=== PATIENT | female | born 1985 | race Hispanic/Latino ===

== ENCOUNTER 2019-07-04 16:43 | Emergency (ER) | payer SELFPAY ==
--- NOTE | 2019-07-04 17:38 | RAD ---
CHEST ONE VIEW: 07/04/19 INDICATION: Emergency examination, chest pain. COMPARISON: Prior exam dated 10/04/14. FINDINGS: The lungs are clear. The heart size is normal. No pleural effusion, or pneumothorax is evident. No ac becky osseous abnormality is noted. The visualized upper abdomen is unremarkable appearing. IMPRESSION: No acute cardiopulmonary abnormality. POS: [facility]
[2019-07-04 18:16] LABS: #Basophils 0.1 thou/uL (0.0-0.2); #Eosinphils 0.2 thou/uL (0.0-0.7); #Monocytes 0.5 thou/uL (0.11-0.59); %Basophils 1.4 % (0.0-1.0); %Eosinophils 3.4 % (0.0-10.0); %Lymphocytes 29.4 % (21.0-51.0); %Monocytes 7.3 % (0.0-10.0); %Neutrophils 58.5 % (42.0-75.0); Hemoglobin 13.3 g/dL (12.0-16.0); Mean Corpuscular HGB CONC 33.6 g/dL (32.0-36.0); Mean Corpuscular Hemoglobin 31.8 pg (27.0-31.0); Mean Corpuscular Volume 94.7 fL (78.0-98.0); Mean Platelet Volume 8.4 fL (7.4-10.4); Platelet Count 231 thou/uL (130-400); RBC Distribution Width 11.6 % (11.5-14.5); Red Blood Cell (RBC) Count 4.18 mill/uL (4.20-5.40); White Blood Cell (WBC) Count 6.9 thou/uL (4.8-10.8)
[2019-07-04 18:37] LABS: ALT (SGPT) 15 U/L (8-55); AST (SGOT) 15 U/L (5-34); Albumin 4.1 g/dL (3.5-5.0); Alkaline Phosphatase 45 U/L (40-110); Anion Gap 13 mmol/L (10-20); BUN (Urea Nitrogen) 9 mg/dL (7.0-18.7); Bilirubin, Total 0.2 mg/dL (0.2-1.2); Calc. Creatinine Clearance 0 mL/min (70-130); Calcium 8.8 mg/dL (7.8-10.44); Carbon Dioxide 19 mmol/L (22-29); Chloride 109 mmol/L (98-107); Estimated GFR-MDRD Greater than 90; Globulin 3.1 g/dL (2.4-3.5); Glucose 95 mg/dL (70-105); Protein, Total 7.2 g/dL (6.0-8.3); Sodium 137 mmol/L (136-145)
[2019-07-04 18:40] LABS: BHCG - Serum Negative (NEGATIVE); Pregs Control Background? CLEAR/WHITE (CLR/WHITE); Pregs Control Bar Appear? YES (CONTROL BAR)
[2019-07-04 21:05] LABS: Troponin I Less than 0.010 ng/mL (< 0.028)
== END 2019-07-04 21:29 | disposition home or self-care (01) ==
LOC: ERS 16:43
DX: R07.89 Other chest pain (principal)
CPT/HCPCS: 36415; 71045; 80053; 84484; 84703; 85025; 85379; 93005

== ENCOUNTER 2020-10-21 | Emergency (ER) | payer SELFPAY | END 2020-10-21 16:10 | disposition home or self-care (01) | DX: R07.2 Precordial pain (principal) ==

== ENCOUNTER 2022-06-30 13:34 | Emergency (ER) | payer SELFPAY | END 2022-06-30 15:48 | disposition home or self-care (01) | LOC: ERS 13:34 | DX: L50.9 Urticaria, unspecified (principal) | CPT/HCPCS: 99282 ==